=== PATIENT | female | born 1960 | race Caucasian/White ===

== ENCOUNTER 2024-09-30 07:38 | Emergency (ER) | payer MEDICARE, MEDICAID, SELFPAY ==
[2024-09-30 07:39] VITALS: BMI 32.5
[2024-09-30 07:54] VITALS: BP 131/85; PULSE 63; RESP 24; TEMP 36.9; O2SAT 88; BMI 32.5
--- NOTE | 2024-09-30 07:55 | EKG_ITS ---
[facility] Test Date: 2024-09-30 Pat Name: CIRILO CHAPARRO Department: Room: - Gender: Female System Auditor: : 1960 Requested By: Rodolfo Baum (JUAN J) Order Number: [id number] Reading MD: Rodolfo Baum (PROFILER) Measurements Intervals [place] Rate: 59 P: 64 MS: 180 QRS: 44 QRSD: 89 T: 58 QT: 386 QTc: 384 Interpretive Statements SINUS BRADYCARDIA LOW QRS VOLTAGE IN PRECORDIAL LEADS [QRS DEFLECTION < 1.0 mV IN CHEST LEADS] Compared to ECG 08/14/2024 12:45:12 Sinus rhythm no longer present /store/S0/[id number].pdf
--- NOTE | 2024-09-30 07:55 | XR_ITS ---
Examination: Ribs, right, with PA chest, 5 views Technique: Chest PA, RIBS AP, RPO, LPO, AP coned lower ribs 5 views Exam date and time: September 30, 2024 0807 hours INDICATIONS: Patient fell 2 days ago with injury to the right chest right rib pain Findings: Mild prominence left ventricle Moderate vascular congestion No pneumothorax Prominent osteopenia Acute fracture right seventh rib in the midaxillary line IMPRESSION: No pneumothorax pulmonary contusion or hemothorax Acute fracture right seventh ribs without significant displacement
--- NOTE | 2024-09-30 07:56 | PD.EDRME ---
Rapid Medical Screening Exam RME Arrival date/time: 09/30/24 07:38 64-year-old female who is oxygen dependent presents to the emergency department complaints of right-sided rib pain and shortness of breath after injury 2 days ago Chief Complaint: Back Pain/Injury Time Seen by Provider: 09/30/24 07:48
[2024-09-30 08:10] LABS: Basophils % (Auto) 0 % (0-2.5); Eosinophils # (Auto) 0.3 Thou/mm3 (0.0-0.5); Eosinophils % (Auto) 3 % (0-10); Hematocrit 41.9 % (36.0-46.0); Hemoglobin 13.4 g/dL (12.0-16.0); Immature Granulocytes % (Auto) 0 % (0-0); Immature Granulocytes Auto 0.02 Thou/mm3 (0.00-0.00); Lymphocytes # (Auto) 1.4 Thou/mm3 (1.0-4.8); Lymphocytes % (Auto) 19 % (10-50); Mean Corpuscular Hemoglobin 29.9 pg (25.0-35.0); Mean Corpuscular Volume 94 fL (80-100); Monocytes # (Auto) 0.7 Thou/mm3 (0.0-0.8); Monocytes % (Auto) 9 % (0-12); Neutrophils # (Auto) 5.2 Thou/mm3 (1.8-7.7); Neutrophils % (Auto) 68 % (37-80); Nucleated Red Blood Cell % 0 /100 WBC (0); Platelet Count 156 Thou/mm3 (140-440); RDW Standard Deviation 45.5 fL (36.4-46.3); Red Blood Count 4.48 Miln/mm3 (4.00-5.20); White Blood Count 7.6 Thou/mm3 (3.6-11.0)
[2024-09-30] MEDS: HYDROcodone/APAP 5/325 TABLET 1 TAB PO (08:21)
[2024-09-30 08:30] LABS: B-Type Natriuretic Peptide 92 pg/mL (0-100)
[2024-09-30 08:38] LABS: Alanine Aminotransferase 9 U/L (10-49); Albumin, Serum 4.3 gm/dL (3.4-4.8); Albumin/Globulin Ratio 1.4 (1.2-2.2); Alkaline Phosphatase 107 U/L (46-116); Anion Gap 4 (7-16); Aspartate Amino Transferase 16 U/L (0-34); BUN/Creatinine Ratio 10 Ratio (12-20); Bilirubin,Total 0.6 mg/dL (0.3-1.2); Blood Urea Nitrogen 12 mg/dL (9-23); Calcium 9.8 mg/dL (8.3-10.6); Calcium (Corrected) 9.8 mg/dL (8.5-10.1); Carbon Dioxide 30.5 mMol/L (20.0-31.0); Chloride 103 mMol/L (98-107); Creatinine (Component) 1.2 mg/dL (0.6-1.3); Estimated Creatinine Clearance 47.2 mL/min (>60); Glucose 109 mg/dL (74-106); Osmolality,Calculated 274 (275-295); Potassium 4.4 mMol/L (3.4-5.1); Sodium 137 mMol/L (136-145); Total Protein 7.3 gm/dL (5.7-8.2); Troponin I < 0.020 ng/mL (0.0-0.045); eGFR 50 See Note
--- NOTE | 2024-09-30 10:05 | PD.EDBACK ---
ED Back Injury Pain RME/HPI General Chief Complaint: Back Pain/Injury Stated Complaint: DIFF BREATHING, POSS BROKEN RIBS Time Seen by Provider: 09/30/24 07:48 Arrival date/time: 09/30/24 07:38 64-year-old female with COPD with her 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 who is oxygen dependent presents to the emergency department complaints of right-sided rib pain and shortness of breath after injury 2 days ago Limitations: no limitations RME / HPI RME / HPI Narrative: 09/30/24 07:38 64-year-old female who is oxygen dependent presents to the emergency department complaints of right-sided rib pain and shortness of breath after injury 2 days ago Related Data Home Medications ?Medication ?Instructions ?Recorded ?Confirmed atorvastatin 40 mg tablet 40 mg PO HS 03/10/22 02/22/24 clonazepam 0.5 mg tablet 0.5 mg PO BID 03/10/22 02/22/24 amlodipine 5 mg tablet 5 mg PO QDAY 08/23/23 02/22/24 lisinopril 20 mg tablet 20 mg PO QDAY 08/23/23 02/22/24 Previous Rx's ?Medication ?Instructions ?Recorded albuterol sulfate 90 mcg/actuation 1 inh inhalation QID PRN shortness 07/28/22 aerosol inhaler of breath or wheezing #6.7 grams methadone 5 mg/5 mL oral solution 90 mg (90 mL) PO QDAY #500 mL 07/28/22 prednisone 5 mg tablet 10 mg PO QDAY #9 tabs 02/25/24 prednisone 50 mg tablet 50 mg PO QDAY #5 tabs 08/14/24 hydrocodone 10 mg-acetaminophen 1 tab PO BID PRN pain #10 tabs 09/30/24 325 mg tablet Allergies Allergy/AdvReac Type Severity Reaction Status Date / Time Penicillins Allergy Severe Swelling Verified 09/30/24 07:41 of Lip/Tongue/Throat Review of Systems Review of Systems Systems Reviewed: All systems reviewed, normal except as documented Constitutional Constitutional: Reports system reviewed and no additional complaints, except as documented, Denies fever(s) and Denies headache(s) Eyes Eyes: Reports system reviewed and no additional complaints, except as documented and Denies blurry vision ENT Ears, Nose, Mouth, and Throat: Reports system reviewed and no additional complaints, except as documented, Denies headache(s), Denies nasal congestion and Denies nasal discharge Cardiovascular Cardiovascular: Reports system reviewed and no additional complaints, except as documented, Denies chest pain and Denies dyspnea Respiratory Respiratory: Reports system reviewed and no additional complaints, except as documented, Denies chest congestion, Denies cough and Denies dyspnea Gastrointestinal Gastrointestinal: Reports system reviewed and no additional complaints, except as documented and Denies abdominal pain Integumentary/Breasts Skin/Breast: Reports system reviewed and no additional complaints, except as documented, Denies rash and Reports other (Right-sided rib) Neurologic Neurologic: Reports system reviewed and no additional complaints, except as documented, Reports as per HPI and Denies headache(s) Past Medical History Past Medical History NEUROLOGIC: Negative Neurological Disorders or Seizures CARDIAC: Positive Cardiac Disorders, Hypercholesterolemia, Cellulitis, Hypertension and Varicose Veins; Negative Congestive Heart Failure RESPIRATORY: Positive Chronic Obstructive Pulmonary Disease (COPD), Asthma, Pneumonia and Smoking (50 pack year) GASTROINTESTINAL: Positive Hepatitis; Negative Gastrointestinal Disorders GENITOURINARY: Positive Genitourinary Disorders and Kidney Stones; Negative Renal Disease REPRODUCTIVE: Positive Endometriosis; Negative Pelvic Inflammatory Disease or Previous Pregnancies MUSCULOSKELETAL: Positive Musculoskeletal Disorders and Arthritis ENDOCRINE: Negative Endocrine Disorders, Diabetes Mellitus Type 1 or Diabetes Mellitus Type 2 HEMATOLOGIC: Negative Blood Disorders or Sickle Cell Disease PSYCHO/SOCIAL: Positive Recreational Drug Use, Anxiety and Post Traumatic Stress Disorder OTHER HISTORY: Positive Hospitalization, Chicken Pox and Measles; Negative Autoimmune Disease, Shingles, Blood Transfusions, Blood Transfusion Reaction, Anesthesia Reactions, Organ Transplant, MRSA, VRSA, Vancomycin-Resistant Enterococci, Clostridium Difficile or Cancer Family History FAMILY HISTORY: Positive Family Cancer and Family Surgery; Negative Family Psychiatric Problems, Family Respiratory Disorders, Family Cardiac Disorders, Family Gastrointestinal Problems or Family Anesthesia Reaction Surgical History SURGICAL: Positive Abdominal Surgery, Lumpectomy and Hysterectomy; Negative Cardiac Surgery, Endocrine Surgery, Ear Surgery, Nephrectomy, Joint Replacement, Neurologic Surgery, Mastectomy or Organ Transplant Social History SMOKING STATUS: Never smoker SECOND HAND EXPOSURE: No SUBSTANCE USE: does not use ED Exam General Limitations: Present no limitations General appearance: Present alert and in no apparent distress Head Head exam: Present atraumatic Eye Eye exam: Present normal appearance, PERRL and EOMI ENT ENT exam: Present normal exam, normal oropharynx and mucous membranes moist Neck Neck exam: Present normal inspection, full ROM and trachea midline Chest Chest inspection: Present normal inspection, symmetric chest wall rise and tenderness (Right-sided rib tenderness) Respiratory Respiratory exam: Present wheezes (Chronic ); Absent respiratory distress, stridor or accessory muscle use Cardiovascular Cardiovascular exam: Present regular rate, normal rhythm and normal heart sounds Abdominal Exam Abdominal exam: Present soft and normal bowel sounds; Absent distention, tenderness, guarding, rebound or rigidity Extremities Exam Extremities exam: Present normal inspection and full ROM Back Exam Back exam: Present normal inspection, full ROM and tenderness (Right-sided rib); Absent CVA tenderness (R), CVA tenderness (L), muscle spasm or paraspinal tenderness Neurological Exam Neurological exam: Present alert, oriented X3 and CN II-XII intact Psychiatric Psychiatric exam: Present normal affect and normal mood Skin Skin exam: Present warm, dry, intact and normal color Course Quality Measures none Orders Category Date Time Status EKG (ED ONLY) *Do not use* NOW Care 09/30/24 07:55 Completed EKG (ED Only) Stat Exams 09/30/24 07:55 Draft XR ribs RT min 3V w CXR1V Stat Exams 09/30/24 07:55 Completed BNP [B-Type Natriuretic Peptide] Stat Lab 09/30/24 08:00 Completed CBC Stat Lab 09/30/24 08:00 Completed Comprehensive Metabolic Panel Stat Lab 09/30/24 08:00 Completed Troponin I Stat Lab 09/30/24 08:00 Completed HYDROcodone*/APAP 5/325 [[place] 5/325] Med 09/30/24 08:18 Discontinued 1 tab PO X1 ONE Vital Signs Vital signs: Vital Signs Temperature 98.4 F 09/30/24 07:54 Pulse Rate 63 09/30/24 07:54 Respiratory Rate 24 H 09/30/24 07:54 Blood Pressure 131/85 H 09/30/24 07:54 Pulse Oximetry (%) 88 L 09/30/24 07:54 Oxygen Delivery Method Nasal Cannula 09/30/24 07:54 Oxygen Flow Rate 2 09/30/24 07:54 O2 saturation 88% on 2 L Procedures -ED EKG Interpretation #1: Date of EK09/30/24 Time of EK:11 Rate: 59 Interpretation: Interpreted by me EKG Impression: Normal sinus rhythm, No acute ST-T changes, No ectopy, No ischemic changes, Normal QRS and Normal intervals Back Pain / Injury MDM Narrative MDM Narrative:: 64-year-old female with COPD with her 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 who is oxygen dependent presents to the emergency department complaints of right-sided rib pain and shortness of breath after injury 2 days ago Patient wears oxygen daily patient is oxygen between 88 and 90% which she reports is her normal X-ray obtained consistent with fracture which is consistent with her symptoms Patient reports she does not have any increased shortness of breath while sitting but reports when she moves she has increased pain and shortness of breath Patient was given [place] here and discharged home with [place] Patient discharged home in no distress to follow-up with primary care doctor in the next 24 to 48 hours and for any worsening symptoms to return to the ER immediately Patient data External records reviewed:: [facility] previous records Clinical information provided by:: patient Social determinants that could affect healthcare access:: substance use Patient has the following chronic illnesses:: See history How is presenting disease/condition affected by chronic disease/condition?: caused by Evaluation data The following diagnostics were reviewed and interpreted by me:: lab results, radiology exam(s) and EKG tracing(s) Lab and/or radiology exams considered but not ordered:: Labs, radiology, EKG obtained Interpretation Summary: Reviewed by me Medications / Prescriptions Medications or Prescriptions considered but not ordered:: Given Medication administrations:: Medication Administration History Discontinued Medications Hydrocodone Bitart/Acetaminophen (Hydrocodone/Apap 5/325 Tablet) 1 tab PO X1 ONE Stop: 09/30/24 08:19 Last Admin: 09/30/24 08:21 Dose: 1 tab Documented By: KM Given Consultations Consultation(s) initiated? (list below): No Diagnosis Differential diagnosis back pain/injury: other (Rib fracture, rib contusion, pneumothorax, chest pain) Most likely diagnosis given after review of the tests above:: Rib fracture Admission Indicated Admission indicated?: not indicated Admission Request Was there a request for admission?: No Disposition Plan Disposition Plan: Discharge Discharge Attestation Discharge Attestation: The patient and all family members were given an opportunity to ask questions and understood the discharge instructions. Discharge instructions specifically effects, indications for sooner follow up or return to the emergency department, and the expected course of current diagnosis. Patient condition: Stable Discharge Plan Plan Patient Disposition: HOME (Self Care) Disposition Comment: stable Prescriptions/Referrals Prescriptions/Med Rec: New hydrocodone-acetaminophen 10-325 mg tablet 1 tab PO BID MDD 2 tabs PRN (Reason: pain) Qty: 10 0RF No Action atorvastatin 40 mg tablet 40 mg PO HS Patient Comments: TAKE 1 TABLET BY MOUTH EVERY DAY AT BEDTIME FOR 30 DAYS clonazepam 0.5 mg tablet 0.5 mg PO BID Patient Comments: TAKE 1 TABLET BY MOUTH TWICE A DAY lisinopril 20 mg Tablet 20 mg PO QDAY amlodipine 5 mg Tablet 5 mg PO QDAY methadone 5 mg/5 mL Solution 90 mg PO QDAY MDD 90mg Qty: 500 0RF albuterol sulfate 90 mcg/actuation HFA aerosol inhaler 1 inh inhalation QID PRN (Reason: shortness of breath or wheezing) Qty: 6.7 0RF prednisone 5 mg tablet 10 mg PO QDAY Qty: 9 0RF Taper: Prednisone Taper 20 mg DAILY for 2 Days and 0 Hour 10 mg DAILY for 2 Days and 0 Hour 5 mg DAILY for 5 Days and 0 Hour prednisone 50 mg tablet 50 mg PO QDAY Qty: 5 0RF Referrals: Dary Brown FNP [Primary Care Provider] - In 1 week Problem List Clinical Impression: Closed fracture of rib of right side Patient/Caregiver Discharge Instructions Education Materials: ED Rib Fracture Additional Instructions: Please follow up with your primary care doctor in the next 24-48hrs for any worsening symptoms return here immediately Print Language: Niuean Stand Alone Forms: [employer] Award Info., Patient Portal Info Letter Attestation Attestation The patient was seen by the midlevel practitioner. I, the co-signing physician, was present during the entire ER visit. While I did not physically examine the patient, I was available for consultation as needed.
== END 2024-09-30 10:19 | disposition home or self-care (01) ==
PROVIDERS: Nurse Practitioner Primary Care; Emergency Provider Emergency Medicine; PCP Nurse Practitioner
DX: S22.31XA Fracture of one rib, right side, initial encounter for closed fracture (principal); R00.1 Bradycardia, unspecified; X58.XXXA Exposure to other specified factors, initial encounter
CPT/HCPCS: 36415; 71101; 80053; 83880; 84484; 85025; 93005; 99283; A9270

== ENCOUNTER → 2025-01-19 | Outpatient (CLI) | payer OTHER, MEDICAID, SELFPAY ==
--- NOTE | 2025-01-19 10:30 | XR_ITS ---
Examination: Breast ultrasound complete, bilateral Date and time of exam: January 19, 2025 1034 hrs. Indications: History extremely dense breast architecture on screening mammography Technique: Real-time grayscale ultrasonographic imaging bilateral breasts, including all 4 quadrants as well as nipple retroareolar and axillary regions. Findings: Sonographic images right breast 10:00 oval mass circumscribed 6 x 6 mm 11:00 calcification 3 x 3 mm Impression: BI-RADS Category 3: Probably benign findings One additional 6 month right breast sonogram follow-up is needed to document stability of 10:00 nodule described above
--- NOTE | 2025-01-19 11:45 | XR_ITS ---
Examination: Diagnostic digital mammography, bilateral Computer aided detection 3-D breast Tomosynthesis, bilateral Date and time of exam: 01/19/2025, 11:18 AM Comparisons: 01/09/2024 Indications:Calcifications Technique: Nonmagnified MLO, CC views of the breasts to been obtained, reconstructed from 3-D Tomosynthesis images. R2 computer aided detection program utilized for evaluation of suspicious masses and/or abnormal calcifications. 3-D Tomosynthesis images obtained. Findings: The breasts are heterogeneously dense, which may obscure small masses. No evidence of abnormal masses or suspicious calcifications. Stable diffuse bilateral benign-appearing calcifications. Impression: BI-RADS category 2: Benign findings Recommend 1 year follow-up mammogram
== END | disposition home or self-care (01) ==
PROVIDERS: PCP Family Medicine; Referring Provider Nurse Practitioner; Visit Provider Nurse Practitioner
DX: R92.323 Mammographic fibroglandular density, bilateral breasts (principal); N63.11 Unspecified lump in the right breast, upper outer quadrant
CPT/HCPCS: 76641; 77062; 77066; G0279

== ENCOUNTER 2025-05-01 09:11 | Emergency (ER) | payer OTHER, MEDICAID, SELFPAY ==
[2025-05-01 09:22] VITALS: BP 113/70; PULSE 80; RESP 19; TEMP 36.9; O2SAT 95
--- NOTE | 2025-05-01 09:26 | XR_ITS ---
Examination: Foot, right, 3 views Technique: AP, oblique, lateral views foot, 3 views Date and time of exam: May 01, 2025 0948 hours INDICATIONS: CAD right beginning 6 days ago FINDINGS: Prominent osteopenia. No fracture. No opaque: Body IMPRESSION: No opaque foreign body
[2025-05-01 09:45] LABS: Lactate (Lactic Acid) 3.1 mMol/L (0.4-2.0)
[2025-05-01 09:51] LABS: Basophils % (Auto) 0 % (0-2.5); Eosinophils # (Auto) 0.2 Thou/mm3 (0.0-0.5); Eosinophils % (Auto) 2 % (0-10); Hematocrit 37.7 % (36.0-46.0); Hemoglobin 11.8 g/dL (12.0-16.0); Immature Granulocytes % (Auto) 0 % (0-0); Immature Granulocytes Auto 0.03 Thou/mm3 (0.00-0.00); Lymphocytes % (Auto) 12 % (10-50); Mean Corpuscular HGB Conc 31.3 g/dl (31.0-37.0); Mean Corpuscular Hemoglobin 30.2 pg (25.0-35.0); Mean Corpuscular Volume 96 fL (80-100); Monocytes # (Auto) 0.5 Thou/mm3 (0.0-0.8); Monocytes % (Auto) 7 % (0-12); Neutrophils # (Auto) 6.1 Thou/mm3 (1.8-7.7); Neutrophils % (Auto) 78 % (37-80); Nucleated Red Blood Cell % 0 /100 WBC (0); Platelet Count 172 Thou/mm3 (140-440); RDW Standard Deviation 47.8 fL (36.4-46.3); Red Blood Count 3.91 Miln/mm3 (4.00-5.20); White Blood Count 7.8 Thou/mm3 (3.6-11.0)
[2025-05-01 10:02] LABS: Prothrombin Time 11.4 Seconds (9.0-12.2)
--- NOTE | 2025-05-01 10:06 | XR_ITS ---
Examination: Duplex scan of the lower extremity, unilateral right Date and time of exam: May 01, 2025 10:13 AM INDICATIONS: Redness swelling and pain involving the leg beginning one week ago Technique: Duplex scan of the extremity veins using B-mode/grayscale imaging and Doppler spectral analysis and color flow Attention is directed to internal echogenicity, compression and augmentation involving these veins, color flow assessment, spectral analysis Findings: Major deep venous structures in the extremity demonstrate normal course and caliber. There is no evidence of deep vein thrombosis. Normal color flow and spectral analysis Impression: Negative for DVT..
[2025-05-01 10:16] LABS: Alanine Aminotransferase 10 U/L (10-49); Albumin, Serum 4.2 gm/dL (3.4-4.8); Albumin/Globulin Ratio 1.4 (1.2-2.2); Alkaline Phosphatase 111 U/L (46-116); Anion Gap 5 (7-16); Aspartate Amino Transferase 16 U/L (0-34); BUN/Creatinine Ratio 11 Ratio (12-20); Bilirubin,Total 0.4 mg/dL (0.3-1.2); Blood Urea Nitrogen 11 mg/dL (9-23); C-Reactive Protein 2.4 mg/dL (0.0-0.9); Calcium 9.5 mg/dL (8.3-10.6); Calcium (Corrected) 9.5 mg/dL (8.5-10.1); Carbon Dioxide 36.2 mMol/L (20.0-31.0); Chloride 98 mMol/L (98-107); Glucose 115 mg/dL (74-106); Osmolality,Calculated 277 (275-295); Potassium 4.2 mMol/L (3.4-5.1); Procalcitonin < 0.04 ng/ml (0.0-0.49); Sodium 139 mMol/L (136-145); Total Protein 7.2 gm/dL (5.7-8.2); eGFR > 60 See Note
[2025-05-01 10:39] LABS: Sed Rate (ESR) 89 mm/hr (0-30)
--- NOTE | 2025-05-01 11:10 | PD.EDANIML ---
ED Animal Bite RME/HPI General Chief Complaint: Animal Bite Stated Complaint: Cat bite to right foot, red, swollen Time Seen by Provider: 05/01/25 09:25 Arrival date/time: 05/01/25 09:11 65-year-old female with medical history significant for hypertension, hypercholesterolemia and COPD presents with concerns for cat scratch to her right foot patient reports this happened on Sunday. Patient reports tetanus up-to-date patient reports has been on antibiotics since Sunday patient reports symptoms have worsened Limitations: no limitations Related Data Home Medications ?Medication ?Instructions ?Recorded ?Confirmed atorvastatin 40 mg tablet 40 mg PO HS 03/10/22 02/22/24 clonazepam 0.5 mg tablet 0.5 mg PO BID 03/10/22 02/22/24 amlodipine 5 mg tablet 5 mg PO QDAY 08/23/23 02/22/24 lisinopril 20 mg tablet 20 mg PO QDAY 08/23/23 02/22/24 Previous Rx's ?Medication ?Instructions ?Recorded albuterol sulfate 90 mcg/actuation 1 inh inhalation QID PRN shortness 07/28/22 aerosol inhaler of breath or wheezing #6.7 grams methadone 5 mg/5 mL oral solution 90 mg (90 mL) PO QDAY #500 mL 07/28/22 prednisone 5 mg tablet 10 mg PO QDAY #9 tabs 02/25/24 prednisone 50 mg tablet 50 mg PO QDAY #5 tabs 08/14/24 hydrocodone 10 mg-acetaminophen 1 tab PO BID PRN pain #10 tabs 09/30/24 325 mg tablet sulfamethoxazole 800 1 tab PO BID 7 days #14 tabs 05/01/25 mg-trimethoprim 160 mg tablet (Bactrim DS) Allergies Allergy/AdvReac Type Severity Reaction Status Date / Time Penicillins Allergy Severe Swelling Verified 05/01/25 09:18 of Lip/Tongue/Throat Review of Systems Review of Systems Systems Reviewed: All systems reviewed, normal except as documented Constitutional Constitutional: Reports system reviewed and no additional complaints, except as documented, Denies fever(s) and Denies headache(s) Eyes Eyes: Reports system reviewed and no additional complaints, except as documented and Denies blurry vision ENT Ears, Nose, Mouth, and Throat: Reports system reviewed and no additional complaints, except as documented, Denies headache(s), Denies nasal congestion and Denies nasal discharge Cardiovascular Cardiovascular: Reports system reviewed and no additional complaints, except as documented, Denies chest pain and Denies dyspnea Respiratory Respiratory: Reports system reviewed and no additional complaints, except as documented, Denies chest congestion, Denies cough and Denies dyspnea Gastrointestinal Gastrointestinal: Reports system reviewed and no additional complaints, except as documented and Denies abdominal pain Integumentary/Breasts Skin/Breast: Reports system reviewed and no additional complaints, except as documented, Denies rash and Reports wounds (Cat bite right foot, swelling) Neurologic Neurologic: Reports system reviewed and no additional complaints, except as documented, Reports as per HPI and Denies headache(s) Past Medical History Past Medical History NEUROLOGIC: Negative Neurological Disorders or Seizures CARDIAC: Positive Cardiac Disorders, Hypercholesterolemia, Cellulitis, Hypertension and Varicose Veins; Negative Congestive Heart Failure RESPIRATORY: Positive Chronic Obstructive Pulmonary Disease (COPD), Asthma, Pneumonia and Smoking (50 pack year) GASTROINTESTINAL: Positive Hepatitis; Negative Gastrointestinal Disorders GENITOURINARY: Positive Genitourinary Disorders and Kidney Stones; Negative Renal Disease REPRODUCTIVE: Positive Endometriosis; Negative Pelvic Inflammatory Disease or Previous Pregnancies MUSCULOSKELETAL: Positive Musculoskeletal Disorders and Arthritis ENDOCRINE: Negative Endocrine Disorders, Diabetes Mellitus Type 1 or Diabetes Mellitus Type 2 HEMATOLOGIC: Negative Blood Disorders or Sickle Cell Disease PSYCHO/SOCIAL: Positive Recreational Drug Use, Anxiety and Post Traumatic Stress Disorder OTHER HISTORY: Positive Hospitalization, Chicken Pox and Measles; Negative Autoimmune Disease, Shingles, Blood Transfusions, Blood Transfusion Reaction, Anesthesia Reactions, Organ Transplant, MRSA, VRSA, Vancomycin-Resistant Enterococci, Clostridium Difficile or Cancer Family History FAMILY HISTORY: Positive Family Cancer and Family Surgery; Negative Family Psychiatric Problems, Family Respiratory Disorders, Family Cardiac Disorders, Family Gastrointestinal Problems or Family Anesthesia Reaction Surgical History SURGICAL: Positive Abdominal Surgery, Lumpectomy and Hysterectomy; Negative Cardiac Surgery, Endocrine Surgery, Ear Surgery, Nephrectomy, Joint Replacement, Neurologic Surgery, Mastectomy or Organ Transplant Social History SMOKING STATUS: Former smoker SECOND HAND EXPOSURE: No SUBSTANCE USE: does not use ED Exam General Limitations: Present no limitations General appearance: Present alert and in no apparent distress Head Head exam: Present atraumatic Eye Eye exam: Present normal appearance, PERRL and EOMI ENT ENT exam: Present normal exam, normal oropharynx and mucous membranes moist Neck Neck exam: Present normal inspection, full ROM and trachea midline Chest Chest inspection: Present normal inspection and symmetric chest wall rise Respiratory Respiratory exam: Present normal lung sounds bilaterally Cardiovascular Cardiovascular exam: Present regular rate, normal rhythm and normal heart sounds Abdominal Exam Abdominal exam: Present soft and normal bowel sounds Extremities Exam Extremities exam: Present full ROM, tenderness, normal capillary refill, pedal edema and other (Cat bite with erythema right foot); Absent joint swelling Back Exam Back exam: Present normal inspection and full ROM Neurological Exam Neurological exam: Present alert, oriented X3, CN II-XII intact and normal gait Psychiatric Psychiatric exam: Present normal affect and normal mood Skin Skin exam: Present warm, dry and other (Cat bite right foot) Course Quality Measures none Orders Category Date Time Status COVID-19 Screening Questionnaire NOW Care 05/01/25 09:27 Completed Decision to Admit X1 Care 05/01/25 09:27 Completed Insert IV NOW Care 05/01/25 09:26 Completed US venous doppler LE RT Stat Exams 05/01/25 10:06 Completed XR foot comp RT min 3V Stat Exams 05/01/25 09:26 Completed Blood Culture (Lab) Stat Lab 05/01/25 09:34 Received CBC Stat Lab 05/01/25 09:34 Completed CMP [Comprehensive Metabolic Panel] Stat Lab 05/01/25 09:34 Completed CRP [C-Reactive Protein] Stat Lab 05/01/25 09:34 Completed ESR [Sed Rate (ESR)] Stat Lab 05/01/25 09:34 Completed Lactic Acid [Lactate (Lactic Acid)] Stat Lab 05/01/25 09:34 Completed PT [Prothrombin Time with INR] Stat Lab 05/01/25 09:34 Completed Procalcitonin Stat Lab 05/01/25 09:34 Completed Clindamycin Vial [Cleocin vial] Med 05/01/25 12:32 Discontinued 600 mg IM X1 ONE Clindamycin/Ns 600 mg Ivpb [Cleocin/Ns Ivpb] Med 05/01/25 09:27 Discontinued 600 mg in 50 ml IV X1 HYDROcodone*/APAP 5/325 [Homer 5/325] Med 05/01/25 12:06 Discontinued 1 tab PO X1 ONE Sodium Chloride 0.9% 1000 ml [Ns] 1,000 ml Med 05/01/25 12:06 Discontinued IV 999 mls/hr Vital Signs Vital signs: Vital Signs Temperature 98.4 F 05/01/25 09:22 Pulse Rate 80 05/01/25 09:22 Respiratory Rate 19 05/01/25 09:22 Blood Pressure 113/70 05/01/25 09:22 Pulse Oximetry (%) 95 05/01/25 09:22 Oxygen Delivery Method Nasal Cannula 05/01/25 09:22 Oxygen Flow Rate 3 05/01/25 09:22 O2 saturation 95% on nasal cannula 3 L Animal Bite MDM Narrative MDM Narrative:: 65-year-old female with medical history significant for hypertension, hypercholesterolemia and COPD presents with concerns for cat scratch to her right foot patient reports this happened on Sunday. Patient reports tetanus up-to-date patient reports has been on antibiotics since Sunday patient reports symptoms have worsened On exam patient has swelling and redness to the right foot and swelling to the right calf and right lower leg Imaging obtained no acute emergent findings noted Lab work obtained patient does have positive lactic and clinically patient has infection of the right foot I spoke with hospitalist team patient be admitted to the hospital Dr. Roman came to evaluate the patient and felt the patient should be admitted, patient refused admission Patient given dose of clindamycin IV as well as 1 L of IV fluids and is discharged home Patient discharged home with a clear understanding that her symptoms may get worse patient states understanding but still wants to go home Patient data External records reviewed:: [facility] previous records Clinical information provided by:: patient Social determinants that could affect healthcare access:: none Patient has the following chronic illnesses:: See history How is presenting disease/condition affected by chronic disease/condition?: caused by Evaluation data The following diagnostics were reviewed and interpreted by me:: lab results and radiology exam(s) Lab and/or radiology exams considered but not ordered:: Labs radiology obtain Interpretation Summary: By me Medications / Prescriptions Medications or Prescriptions considered but not ordered:: Given Medication administrations:: Medication Administration History Discontinued Medications Hydrocodone Bitart/Acetaminophen (Hydrocodone/Apap 5/325 Tablet) 1 tab PO X1 ONE Stop: 05/01/25 12:07 Last Admin: 05/01/25 12:23 Dose: 1 tab Documented By: ER Clindamycin Phosphate (Clindamycin Phos Inj 150 Mg/Ml Vial 6 Ml) 600 mg IM X1 ONE Stop: 05/01/25 12:33 Last Admin: 05/01/25 13:07 Dose: 600 mg Documented By: ER Clindamycin/Sodium Chloride (Cleocin/Ns Ivpb) 600 mg in 50 mls @ 100 mls/hr IV X1 ONE Stop: 05/01/25 09:56 Last Admin: 05/01/25 13:05 Dose: Not Given Documented By: ER Non-Admin Reason: Discontinued Sodium Chloride (Ns) 1,000 mls @ 999 mls/hr IV .Q1H1M ONE Stop: 05/01/25 13:06 Last Admin: 05/01/25 13:05 Dose: Not Given Documented By: ER Non-Admin Reason: Discontinued Given Consultations Consultation(s) initiated? (list below): No Diagnosis Differential diagnosis animal bite: bite by animal and cat bite Most likely diagnosis given after review of the tests above:: Cat bite Admission Indicated Admission indicated?: indicated Admission Request Was there a request for admission?: Yes Admission Attestation Admission request attestation: Discussed case with [] from Hospitalist service regarding admission. Discussed patients ED course, exam findings, labs, and radiology results. The Hospitalist [agrees,declines] to accept the patient for admission. Disposition Plan Disposition Plan: Discharge Discharge Attestation Discharge Attestation: The patient and all family members were given an opportunity to ask questions and understood the discharge instructions. Discharge instructions specifically effects, indications for sooner follow up or return to the emergency department, and the expected course of current diagnosis. Patient condition: Stable Discharge Plan Plan Patient Disposition: HOME (Self Care) Discharge Disposition comment: Stable Prescriptions/Referrals Prescriptions/Med Rec: New sulfamethoxazole-trimethoprim [Bactrim DS] 800-160 mg tablet 1 tab PO BID 7 Days Qty: 14 0RF No Action atorvastatin 40 mg tablet 40 mg PO HS Patient Comments: TAKE 1 TABLET BY MOUTH EVERY DAY AT BEDTIME FOR 30 DAYS clonazepam 0.5 mg tablet 0.5 mg PO BID Patient Comments: TAKE 1 TABLET BY MOUTH TWICE A DAY lisinopril 20 mg Tablet 20 mg PO QDAY amlodipine 5 mg Tablet 5 mg PO QDAY hydrocodone-acetaminophen 10-325 mg tablet 1 tab PO BID MDD 2 tabs PRN (Reason: pain) Qty: 10 0RF methadone 5 mg/5 mL Solution 90 mg PO QDAY MDD 90mg Qty: 500 0RF albuterol sulfate 90 mcg/actuation HFA aerosol inhaler 1 inh inhalation QID PRN (Reason: shortness of breath or wheezing) Qty: 6.7 0RF prednisone 5 mg tablet 10 mg PO QDAY Qty: 9 0RF Taper: Prednisone Taper 20 mg DAILY for 2 Days and 0 Hour 10 mg DAILY for 2 Days and 0 Hour 5 mg DAILY for 5 Days and 0 Hour prednisone 50 mg tablet 50 mg PO QDAY Qty: 5 0RF Referrals: Dary Brown FNP [Primary Care Provider] - In 1 week Problem List Clinical Impression: Infection of cat scratch wound Patient/Caregiver Discharge Instructions Education Materials: What Is Cat Scratch Disease? Print Language: Hungarian Stand Alone Forms: Yesi Award Info., Patient Portal Info Letter SOLANGE/WILLARD Supervising Physician SOLANGE/WILLARD Supervising Physician: Dr barnes
[2025-05-01] MEDS: HYDROcodone/APAP 5/325 TABLET 1 TAB PO (12:23)
[2025-05-01 12:41] LABS: Reflex Lactate? Y
[2025-05-01] MEDS: CLINDAMYCIN PHOS INJ 150 MG/ML VIAL 6 ML 600 MG IM (13:07)
[2025-05-01 13:21] VITALS: BP 150/90; PULSE 70; RESP 18; TEMP 36.7; O2SAT 90
== END 2025-05-01 13:23 | disposition home or self-care (01) ==
PROVIDERS: Nurse Practitioner Primary Care; Emergency Provider Emergency Medicine; PCP Nurse Practitioner
DX: S90.811A Abrasion, right foot, initial encounter (principal); L08.9 Local infection of the skin and subcutaneous tissue, unspecified; M79.604 Pain in right leg; W55.03XA Scratched by cat, initial encounter
CPT/HCPCS: 36415; 73630; 80053; 83605; 84145; 85025; 85610; 85652; 86140; 87040; 93971; 96372; 99283; J0736; A9270

== ENCOUNTER → 2025-08-12 | Outpatient (CLI) | payer OTHER, MEDICAID, SELFPAY ==
--- NOTE | 2025-08-12 14:00 | XR_ITS ---
CT chest, without intravenous contrast. Sagittal and coronal 2-D reconstructions. Exam date and time: August 12, 2025, 1350 hours INDICATIONS: Smoking history 50 years CTDI:vol (mGy) 11.7 DLP: (mGycm) 430 Technique: Multiple 3.0 mm axial sections of the chest to been obtained. Bone and lung density settings are obtained. Sagittal and coronal 2-D reconstructions have been obtained. Low dose protocols were performed. One or more of the following dose reduction techniques were used; automated exposure control, adjustment of the mA and/or KV according to patient size, use of iterative reconstruction technique. Findings: Thoracic aortic calcification no aneurysmal dilatation Pulmonary artery segments are not enlarged Moderate calcification left anterior descending left circumflex right coronary arteries 3 mm soft pulmonary nodule right upper lobe image 133 6 mm soft pulmonary nodule left upper lobe image 133 3 mm pulmonary nodule right upper lobe image 145 3 mm pulmonary nodule right middle lobe image 233 No lobar pneumonia or pulmonary edema Liver is irregular in contour Absent gallbladder Partial visualization advanced appearing left hydronephrosis IMPRESSION: COPD Multiple subcentimeter pulmonary nodules, with this study as baseline recommend 6 month follow-up CT chest without contrast Partial visualization left hydronephrosis, recommend CT abdomen and pelvis without contrast follow-up to assess etiology of this hydronephrosis
== END | disposition home or self-care (01) ==
PROVIDERS: Referring Provider Nurse Practitioner; Visit Provider Nurse Practitioner
DX: J44.9 Chronic obstructive pulmonary disease, unspecified (principal); R91.8 Other nonspecific abnormal finding of lung field; N13.30 Unspecified hydronephrosis; F17.200 Nicotine dependence, unspecified, uncomplicated
CPT/HCPCS: 71271